=== PATIENT | female | born 1940 | race Caucasian/White ===

== ENCOUNTER → 2023-11-16 14:08 | Outpatient (REF) | payer MEDICARE, BC, SELFPAY | LOC: HWWDC 14:08 | PROVIDERS: ATTENDING PHYSICIAN Internal Medicine; REFERRING PHYSICIAN Family Medicine | DX: Z12.31 Encounter for screening mammogram for malignant neoplasm of breast (principal) | CPT/HCPCS: 77063; 77067 ==

== ENCOUNTER → 2023-12-19 13:40 | Outpatient (REF) | payer MEDICARE, BC, SELFPAY ==
[2023-12-19 15:43] LABS: % Eosinophils 3.3 % (0-6); % Immature Granulocytes 0.3 % (0-0.5); % Lymphocytes 28.1 % (20.5-51.1); % Monocytes 7.8 % (1.7-9.3); % Neutrophils 59.5 % (42.2-75.2); Absolute Basophils 0.1 10^3/uL (0-0.2); Absolute Eosinophils 0.2 10^3/uL (0-0.7); Absolute Lymphocytes 1.9 10^3/uL (1.2-3.4); Absolute Monocytes 0.5 10^3/uL (0.1-0.6); Hemoglobin 13.6 g/dL (12.0-16.0); Mean Corp Hgb Conc. 33.2 g/dL (33.0-37.0); Mean Corpuscular Hgb 30.5 pg (27.0-31.0); Mean Corpuscular Volume 91.9 fL (81.0-99.0); Mean Platelet Volume 9.9 fL (7.4-10.4); Nucleated Red Blood Cells % 0 %; Platelet Count 285 10^3/uL (130-400); Red Blood Cell Count 4.46 10^6/uL (4.20-5.40); Red Cell Dist. Width 12.2 % (11.5-14.5); White Blood Cell Count 6.7 10^3/uL (4.8-10.8)
[2023-12-19 15:56] LABS: Erythrocyte Sed Rate 6 mm/hour (0-20)
[2023-12-19 16:07] LABS: ALT (SGPT) 22 U/L (0-35); AST (SGOT) 35 U/L (14-36); Albumin 4.3 g/dl (3.5-5.0); Alkaline Phosphatase 82 U/L (38-126); Blood Urea Nitrogen 19 mg/dl (7-17); Calcium 9.2 mg/dl (8.4-10.2); Carbon Dioxide 27 mmol/L (22-30); Chloride 104 mmol/L (98-107); Glucose 84 mg/dl (70-99); HDL Cholesterol 87 mg/dl; LDL Cholesterol, Calculated 95 mg/dl; Magnesium 2.1 mg/dl (1.6-2.3); Sodium 136 mmol/L (135-145); Total Bilirubin 0.6 mg/dl (0.2-1.3); Total Cholesterol 203 mg/dl (50-199); Triglyceride 105 mg/dl (10-149); Very Low Density Lipoprotein 21 mg/dl (0-30); eGFR > 60.00
[2023-12-19 16:12] LABS: Potassium 4.4 mmol/L (3.5-5.1)
[2023-12-19 16:15] LABS: Complement C3 102 mg/dl (88-165)
[2023-12-19 16:28] LABS: Free T3 3.37 pg/ml (2.77-5.27); Free T4 0.78 ng/dl (0.78-2.19)
[2023-12-19 16:41] LABS: TSH 3.08 uIU/ml (0.47-4.68)
[2023-12-22 16:15] LABS: Total T3 (Sendout) 241 ng/dL (80-200)
[2023-12-22 17:10] LABS: DHEA Sulfate 71 ug/dL (12-154)
== END ==
LOC: HWLAB 13:40
PROVIDERS: ATTENDING PHYSICIAN Family Medicine; FAMILY PHYSICIAN Family Medicine
DX: E27.40 Unspecified adrenocortical insufficiency (principal); E72.11 Homocystinuria; I10 Essential (primary) hypertension; I25.10 Atherosclerotic heart disease of native coronary artery without angina pectoris; M05.79 Rheumatoid arthritis with rheumatoid factor of multiple sites without organ or systems involvement; M79.605 Pain in left leg; E03.8 Other specified hypothyroidism
CPT/HCPCS: 36415; 80053; 80061; 82533; 82627; 83090; 83735; 84439; 84443; 84480; 84481; 85025; 85652; 86140; 86160

== ENCOUNTER → 2024-04-03 12:54 | Outpatient (REF) | payer MEDICARE, BC, SELFPAY ==
[2024-04-03 15:22] LABS: % Eosinophils 3.7 % (0-6); % Immature Granulocytes 0.3 % (0-0.5); % Lymphocytes 26.6 % (20.5-51.1); % Monocytes 9.9 % (1.7-9.3); % Neutrophils 58.5 % (42.2-75.2); Absolute Basophils 0.1 10^3/uL (0-0.2); Absolute Eosinophils 0.2 10^3/uL (0-0.7); Absolute Lymphocytes 1.6 10^3/uL (1.2-3.4); Absolute Monocytes 0.6 10^3/uL (0.1-0.6); Absolute Neutrophils 3.5 10^3/uL (1.4-6.5); Hematocrit 38.9 % (37.0-47.0); Hemoglobin 13.1 g/dL (12.0-16.0); Mean Corp Hgb Conc. 33.7 g/dL (33.0-37.0); Mean Corpuscular Hgb 30.3 pg (27.0-31.0); Mean Corpuscular Volume 89.8 fL (81.0-99.0); Mean Platelet Volume 9.8 fL (7.4-10.4); Nucleated Red Blood Cells % 0 %; Platelet Count 250 10^3/uL (130-400); Red Blood Cell Count 4.33 10^6/uL (4.20-5.40); Red Cell Dist. Width 12.8 % (11.5-14.5)
[2024-04-03 15:29] LABS: ALT (SGPT) 20 U/L (0-35); AST (SGOT) 33 U/L (14-36); Albumin 4.2 g/dl (3.5-5.0); Alkaline Phosphatase 70 U/L (38-126); Blood Urea Nitrogen 19 mg/dl (7-17); Calcium 9.5 mg/dl (8.4-10.2); Carbon Dioxide 28 mmol/L (22-30); Chloride 104 mmol/L (98-107); Glucose 89 mg/dl (70-99); HDL Cholesterol 95 mg/dl; LDL Cholesterol, Calculated 90 mg/dl; Potassium 4.2 mmol/L (3.5-5.1); Sodium 138 mmol/L (135-145); Total Bilirubin 0.8 mg/dl (0.2-1.3); Total Cholesterol 201 mg/dl (50-199); Triglyceride 84 mg/dl (10-149); Very Low Density Lipoprotein 16 mg/dl (0-30); eGFR > 60.00
[2024-04-03 15:30] LABS: Erythrocyte Sed Rate 17 mm/hour (0-20)
== END ==
LOC: HWLAB 12:54
PROVIDERS: ATTENDING PHYSICIAN Internal Medicine Rheumatology; FAMILY PHYSICIAN Family Medicine; REFERRING PHYSICIAN Family Medicine
DX: E78.00 Pure hypercholesterolemia, unspecified (principal); Z13.1 Encounter for screening for diabetes mellitus; Z13.29 Encounter for screening for other suspected endocrine disorder; R53.83 Other fatigue; M05.79 Rheumatoid arthritis with rheumatoid factor of multiple sites without organ or systems involvement
CPT/HCPCS: 36415; 80053; 80061; 84443; 85025; 85652; 86140

== ENCOUNTER → 2024-05-20 09:56 | Outpatient (REF) | payer MEDICARE, BC, SELFPAY | LOC: WDC 09:56 | PROVIDERS: ATTENDING PHYSICIAN Family Medicine | DX: N64.4 Mastodynia (principal) | CPT/HCPCS: 76642; 77061; 77065 ==

== ENCOUNTER → 2024-08-27 13:34 | Outpatient (REF) | payer MEDICARE, BC, SELFPAY ==
[2024-08-27 16:54] LABS: % Basophils 0.9 % (0-2); % Eosinophils 3.4 % (0-6); % Immature Granulocytes 0.5 % (0-0.5); % Lymphocytes 25.4 % (20.5-51.1); % Neutrophils 62.8 % (42.2-75.2); Absolute Basophils 0.1 10^3/uL (0-0.2); Absolute Eosinophils 0.2 10^3/uL (0-0.7); Absolute Lymphocytes 1.7 10^3/uL (1.2-3.4); Absolute Monocytes 0.5 10^3/uL (0.1-0.6); Absolute Neutrophils 4.1 10^3/uL (1.4-6.5); Hematocrit 42.1 % (37.0-47.0); Mean Corp Hgb Conc. 33.3 g/dL (33.0-37.0); Mean Corpuscular Volume 93.1 fL (81.0-99.0); Mean Platelet Volume 9.7 fL (7.4-10.4); Nucleated Red Blood Cells % 0 %; Platelet Count 272 10^3/uL (130-400); Red Blood Cell Count 4.52 10^6/uL (4.20-5.40); Red Cell Dist. Width 12.9 % (11.5-14.5); White Blood Cell Count 6.5 10^3/uL (4.8-10.8)
[2024-08-27 17:02] LABS: ALT (SGPT) 29 U/L (0-35); AST (SGOT) 36 U/L (14-36); Albumin 4.5 g/dl (3.5-5.0); Alkaline Phosphatase 54 U/L (38-126); Blood Urea Nitrogen 14 mg/dl (7-17); Calcium 9.7 mg/dl (8.4-10.2); Carbon Dioxide 29 mmol/L (22-30); Chloride 103 mmol/L (98-107); Glucose 90 mg/dl (70-99); Potassium 4.5 mmol/L (3.5-5.1); Sodium 141 mmol/L (135-145); Total Bilirubin 0.6 mg/dl (0.2-1.3); Total Cholesterol 225 mg/dl (50-199); Total Protein 7.1 g/dl (6.3-8.2); Triglyceride 116 mg/dl (10-149); Very Low Density Lipoprotein 23 mg/dl (0-30); eGFR > 60.00
[2024-08-27 17:11] LABS: HDL Cholesterol 119 mg/dl; LDL Cholesterol, Calculated 83 mg/dl
[2024-08-27 17:31] LABS: TSH Reflex To Free T4 2.13 uIU/ml (0.47-4.68)
== END ==
LOC: HWLAB 13:34
PROVIDERS: ATTENDING PHYSICIAN Family Medicine; REFERRING PHYSICIAN Family Medicine
DX: E78.00 Pure hypercholesterolemia, unspecified (principal); Z13.1 Encounter for screening for diabetes mellitus; Z13.29 Encounter for screening for other suspected endocrine disorder; R53.83 Other fatigue
CPT/HCPCS: 36415; 80053; 80061; 84443; 85025

== ENCOUNTER → 2024-12-03 14:49 | Outpatient (REF) | payer MEDICARE, BC, SELFPAY | LOC: HWRAD 14:49 | PROVIDERS: ATTENDING PHYSICIAN Family Medicine | DX: M81.0 Age-related osteoporosis without current pathological fracture (principal); Z79.52 Long term (current) use of systemic steroids | CPT/HCPCS: 77080 ==

== ENCOUNTER → 2025-01-02 13:10 | Outpatient (REF) | payer MEDICARE, BC, SELFPAY ==
[2025-01-02 16:48] LABS: % Basophils 0.8 % (0-2); % Eosinophils 2.2 % (0-6); % Immature Granulocytes 0.2 % (0-0.5); % Lymphocytes 17.8 % (20.5-51.1); % Monocytes 8.5 % (1.7-9.3); % Neutrophils 70.5 % (42.2-75.2); Absolute Basophils 0.1 10^3/uL (0-0.2); Absolute Eosinophils 0.1 10^3/uL (0-0.7); Absolute Lymphocytes 1.1 10^3/uL (1.2-3.4); Absolute Monocytes 0.5 10^3/uL (0.1-0.6); Absolute Neutrophils 4.2 10^3/uL (1.4-6.5); Hematocrit 38.9 % (37.0-47.0); Hemoglobin 12.7 g/dL (12.0-16.0); Mean Corp Hgb Conc. 32.6 g/dL (33.0-37.0); Mean Corpuscular Hgb 31.1 pg (27.0-31.0); Mean Corpuscular Volume 95.3 fL (81.0-99.0); Mean Platelet Volume 10.2 fL (7.4-10.4); Nucleated Red Blood Cells % 0 %; Platelet Count 254 10^3/uL (130-400); Red Blood Cell Count 4.08 10^6/uL (4.20-5.40); Red Cell Dist. Width 13.1 % (11.5-14.5)
[2025-01-02 17:00] LABS: ALT (SGPT) 28 U/L (0-35); AST (SGOT) 32 U/L (14-36); Albumin 4.4 g/dl (3.5-5.0); Alkaline Phosphatase 55 U/L (38-126); Blood Urea Nitrogen 19 mg/dl (7-17); Calcium 9.4 mg/dl (8.4-10.2); Carbon Dioxide 27 mmol/L (22-30); Chloride 102 mmol/L (98-107); Glucose 90 mg/dl (70-99); Potassium 4.7 mmol/L (3.5-5.1); Sodium 135 mmol/L (135-145); Total Bilirubin 0.7 mg/dl (0.2-1.3); Total Protein 6.5 g/dl (6.3-8.2); eGFR > 60.00
[2025-01-02 17:01] LABS: C-Reactive Protein < 5.00 mg/L (0.0-10.00)
[2025-01-02 17:07] LABS: Erythrocyte Sed Rate 6 mm/hour (0-20)
== END ==
LOC: HWLAB 13:10
PROVIDERS: ATTENDING PHYSICIAN Internal Medicine Rheumatology; FAMILY PHYSICIAN Family Medicine
DX: M05.79 Rheumatoid arthritis with rheumatoid factor of multiple sites without organ or systems involvement (principal)
CPT/HCPCS: 36415; 80053; 85025; 85652; 86140

== ENCOUNTER → 2025-01-23 12:41 | Outpatient (REF) | payer MEDICARE, BC, SELFPAY | LOC: HWRAD 12:41 | PROVIDERS: ATTENDING PHYSICIAN Registered Nurse; FAMILY PHYSICIAN Family Medicine | DX: N94.89 Other specified conditions associated with female genital organs and menstrual cycle (principal) | CPT/HCPCS: 76830; 76856 ==

== ENCOUNTER → 2025-02-04 13:21 | Outpatient (REF) | payer MEDICARE, BC, SELFPAY | LOC: HWRAD 13:21 | PROVIDERS: ATTENDING PHYSICIAN Registered Nurse; REFERRING PHYSICIAN Family Medicine | DX: Z12.31 Encounter for screening mammogram for malignant neoplasm of breast (principal) | CPT/HCPCS: 77063; 77067 ==

== ENCOUNTER → 2025-02-12 13:06 | Outpatient (REF) | payer MEDICARE, BC, SELFPAY ==
[2025-02-12 15:56] LABS: % Basophils 1.3 % (0-2); % Eosinophils 2.1 % (0-6); % Immature Granulocytes 0.2 % (0-0.5); % Lymphocytes 22.7 % (20.5-51.1); % Neutrophils 61.7 % (42.2-75.2); Absolute Basophils 0.1 10^3/uL (0-0.2); Absolute Eosinophils 0.1 10^3/uL (0-0.7); Absolute Lymphocytes 1.2 10^3/uL (1.2-3.4); Absolute Monocytes 0.6 10^3/uL (0.1-0.6); Absolute Neutrophils 3.2 10^3/uL (1.4-6.5); Hematocrit 38.7 % (37.0-47.0); Hemoglobin 12.6 g/dL (12.0-16.0); Mean Corp Hgb Conc. 32.6 g/dL (33.0-37.0); Mean Corpuscular Hgb 31.3 pg (27.0-31.0); Mean Platelet Volume 9.7 fL (7.4-10.4); Nucleated Red Blood Cells % 0 %; Platelet Count 280 10^3/uL (130-400); Red Blood Cell Count 4.03 10^6/uL (4.20-5.40); Red Cell Dist. Width 12.6 % (11.5-14.5); White Blood Cell Count 5.2 10^3/uL (4.8-10.8)
[2025-02-12 16:04] LABS: ALT (SGPT) 23 U/L (0-35); AST (SGOT) 30 U/L (14-36); Albumin 4.5 g/dl (3.5-5.0); Alkaline Phosphatase 60 U/L (38-126); Blood Urea Nitrogen 19 mg/dl (7-17); Calcium 9.5 mg/dl (8.4-10.2); Carbon Dioxide 25 mmol/L (22-30); Chloride 104 mmol/L (98-107); Glucose 101 mg/dl (70-99); Potassium 4.7 mmol/L (3.5-5.1); Sodium 139 mmol/L (135-145); Total Bilirubin 0.7 mg/dl (0.2-1.3); Total Protein 6.9 g/dl (6.3-8.2); eGFR > 60.00
[2025-02-13 13:23] LABS: Lyme Antibody Screen, EIA Negative (Negative)
== END ==
LOC: HWLAB 13:06
PROVIDERS: ATTENDING PHYSICIAN Nurse Practitioner Adult Health
DX: M25.551 Pain in right hip (principal); S50.861D Insect bite (nonvenomous) of right forearm, subsequent encounter; W57.XXXD Bitten or stung by nonvenomous insect and other nonvenomous arthropods, subsequent encounter; T73.2XXA Exhaustion due to exposure, initial encounter
CPT/HCPCS: 36415; 80053; 85025; 86618

== ENCOUNTER → 2025-02-25 13:38 | Outpatient (REF) | payer MEDICARE, BC, SELFPAY ==
[2025-02-25 17:30] LABS: Erythrocyte Sed Rate 29 mm/hour (0-20)
[2025-02-27 08:36] LABS: Rheumatoid Agglutinin Less Than 10 IU (<10 IU)
[2025-02-27 12:12] LABS: Lyme Antibody Screen, EIA Negative (Negative)
== END ==
LOC: HWLAB 13:38
PROVIDERS: ATTENDING PHYSICIAN Family Medicine
DX: M05.732 Rheumatoid arthritis with rheumatoid factor of left wrist without organ or systems involvement (principal); M79.10 Myalgia, unspecified site; M25.50 Pain in unspecified joint
CPT/HCPCS: 36415; 85652; 86038; 86140; 86235; 86430; 86618; 86780

== ENCOUNTER → 2025-03-18 12:55 | Outpatient (REF) | payer MEDICARE, BC, SELFPAY ==
[2025-03-18 15:23] LABS: % Basophils 0.9 % (0-2); % Eosinophils 3.6 % (0-6); % Immature Granulocytes 0.3 % (0-0.5); % Lymphocytes 23.9 % (20.5-51.1); % Monocytes 9.3 % (1.7-9.3); Absolute Basophils 0.1 10^3/uL (0-0.2); Absolute Eosinophils 0.2 10^3/uL (0-0.7); Absolute Lymphocytes 1.4 10^3/uL (1.2-3.4); Absolute Monocytes 0.5 10^3/uL (0.1-0.6); Absolute Neutrophils 3.6 10^3/uL (1.4-6.5); Hematocrit 38.3 % (37.0-47.0); Hemoglobin 12.2 g/dL (12.0-16.0); Mean Corp Hgb Conc. 31.9 g/dL (33.0-37.0); Mean Corpuscular Hgb 30.7 pg (27.0-31.0); Mean Corpuscular Volume 96.5 fL (81.0-99.0); Nucleated Red Blood Cells % 0 %; Platelet Count 239 10^3/uL (130-400); Red Blood Cell Count 3.97 10^6/uL (4.20-5.40); Red Cell Dist. Width 12.4 % (11.5-14.5); White Blood Cell Count 5.8 10^3/uL (4.8-10.8)
[2025-03-18 15:31] LABS: ALT (SGPT) 23 U/L (0-35); AST (SGOT) 28 U/L (14-36); Albumin 4.2 g/dl (3.5-5.0); Alkaline Phosphatase 56 U/L (38-126); Blood Urea Nitrogen 22 mg/dl (7-17); Calcium 9.3 mg/dl (8.4-10.2); Carbon Dioxide 27 mmol/L (22-30); Chloride 107 mmol/L (98-107); Glucose 79 mg/dl (70-99); Potassium 4.6 mmol/L (3.5-5.1); Sodium 140 mmol/L (135-145); Total Bilirubin 0.7 mg/dl (0.2-1.3); Total Protein 6.5 g/dl (6.3-8.2); eGFR > 60.00
[2025-03-18 15:44] LABS: Erythrocyte Sed Rate 15 mm/hour (0-20)
[2025-03-18 16:07] LABS: Hepatitis B Core Ab, IgM Negative (Negative)
[2025-03-18 16:19] LABS: Hepatitis B Surface Antibody Negative
== END ==
LOC: RAD 12:55
PROVIDERS: ATTENDING PHYSICIAN Internal Medicine Rheumatology; FAMILY PHYSICIAN Family Medicine; OTHER PHYSICIAN Nurse Practitioner Adult Health; REFERRING PHYSICIAN Family Medicine
DX: M05.79 Rheumatoid arthritis with rheumatoid factor of multiple sites without organ or systems involvement (principal); M53.3 Sacrococcygeal disorders, not elsewhere classified
CPT/HCPCS: 36415; 72220; 80053; 85025; 85652; 86140; 86705; 86706

== ENCOUNTER → 2025-04-28 08:47 | Outpatient (REF) | payer MEDICARE, BC, SELFPAY | LOC: HWLAB 08:47 | PROVIDERS: ATTENDING PHYSICIAN Internal Medicine Rheumatology; FAMILY PHYSICIAN Family Medicine; REFERRING PHYSICIAN Family Medicine | DX: M05.79 Rheumatoid arthritis with rheumatoid factor of multiple sites without organ or systems involvement (principal) | CPT/HCPCS: 36415; 86480 ==

== ENCOUNTER 2025-06-04 23:53 | Emergency (ER) | payer MEDICARE, BC, SELFPAY ==
[2025-06-04 23:59] VITALS: BP 143/79
--- NOTE | 2025-06-05 00:06 | ED.GENMED ---
Addendum entered and electronically signed by Milka Fletcher MD 06/05/25 12:45:
Case d/w pt at 1243, made her aware of fx, asked her to return for splint placement and will need to f/u ortho. She is going to see her chiropractor ater today and will come to ED around 5pm for splint placement. Will make staff aware. SHe has
seen Dr Huerta in past and plans to call him now for f/u.
Addendum entered and electronically signed by Milka Fletcher MD 06/05/25 07:51:
750AM Notified by Dr Timmons that pt has a nondisplaced radial head fx. Call placed to pt, no answer. Will continue to attempt to reach pt throughout day today.
Original Note:
History of Present Illness
General
Chief Complaint: Fall
Source: patient
Exam Limitations: none
Time Seen by Provider: 06/05/25 00:04
Nursing documentation reviewed up to this point in time: agreed with
History of Present Illness
History of Present Illness:
This is a 84-year-old female with a past medical history of coronary artery disease, hypertension, interstitial cystitis, bladder cancer, rheumatoid arthritis, presents emergency department today with concerns of elbow and wrist pain following a
trip and fall. Patient reports that she was helping up a neighbor with things in the garden and walked outside appointment was dark out with only risk intern and did not he a small fence surrounding the bushes. She walked forward and tripped over the
small fence, landing on her left side, and hitting her head as well as her left upper extremity. She did not lose consciousness. After the fall, she was able to get up on her own without any difficulty and walk without any pain with weightbearing.
She denies any left lower lower knee pain, left ankle pain. She notes pain in her left elbow and left wrist. She did have prior wrist surgery and a left wrist with Dr. England for prior fracture. She also notes a headache on the left side but
denies any dizziness, lightheadedness, visual changes, states that she is some soreness in her neck but denies any upper extremity paresthesias, denies any trouble ranging her neck. She denies any other injuries. She denies any chest pain or
shortness of breath. She denies any abdominal pain. Patient is unsure of her tetanus status however refuses tetanus being updated because she states that she had a severe allergic reaction in the past.
Past History
Past History
ED Past Medical History: Cancer (bladder tumor removed), Fibromyalgia, PR (two), Hypothyroidism and Other (2 PR -- osteporosis -- chronic fatique -- chemical sensatives -- urinary cystitis--- Hashimotos thyroid---interstitial cystitis )
ED Past Surgical History: Gynecological and Other (bladder tumor removed)
Social History
Tobacco: Non-smoker
Alcohol: Daily (wine)
Personal:
Living: alone
Employment: Disabled (fx back then , last [place] 1994.)
Family History
Family History: Other (Noncontributory)
Review of Systems
Review of Systems
All Other Systems: ROS reviewed and negative except as documented in HPI and ROS
Phy Exam
Physical Exam
Physical Exam:
General: Patient is well appearing and in no acute distress; non-toxic
Skin: Warm and dry, small abrasion noted over the left knee
Head: Normocephalic, atraumatic
Eyes: Sclera non-icteric. EOMs intact.
Cardiac: Regular rate and rhythm, no tenderness palpation of the external chest wall
Peripheral Vascular: No lower extremity swelling or edema, 2+ dorsalis pedis pulses in the left, 2+ popliteal pulses
Pulm: Normal respiratory effort
Musculoskeletal: Full range of motion on the left upper extremities full rom of left wrist and left elbow, no deformity noted
Neuro: CN II-XII intact, no focal neurologic deficits.
Psychiatric: Appropriate mood and affect.
Course
Orders/Labs/Results
Orders:
Orders
06/05/25 00:19
CT Cervical Spine W/o Iv Contr Urgent
Comment:
Reason For Exam: neck pain
CT Head W/o Iv Contrast Urgent
Comment:
Reason For Exam: left sided headache, head trauma
CR Elbow - Left Min 2 View Urgent
Comment:
Reason For Exam: left elbow pain
CR Wrist - Left Min 3 Views Urgent
Comment:
Reason For Exam: left wrist pain
Vital Signs
Initial and Last Documented VS:
Initial Vital Signs
Temp Pulse Resp BP Pulse Ox
98.1 F 78 18 143/79 98
06/04/25 23:59 06/04/25 23:59 06/04/25 23:59 06/04/25 23:59 06/04/25 23:59
Last Documented Vital Signs
Temp Pulse Resp BP Pulse Ox
98.1 F 78 16 162/86 96
06/04/25 23:59 06/05/25 01:40 06/05/25 01:40 06/05/25 01:40 06/05/25 01:40
MDM/Problems Addressed
Differential Diagnosis Includes:
Differentials include wrist fracture, elbow fracture, wrist contusion, concussion, tension headache, hematoma
MDM/Problems Addressed:
This is a 84-year-old female with a past medical history of coronary artery disease, hypertension, interstitial cystitis, bladder cancer, rheumatoid arthritis, presents emergency department today with concerns of elbow and wrist pain following a
trip and fall. During the fall, she also reports hitting her head. She not lose consciousness. On physical exam she is well-appearing no acute distress. There is mild swelling noted to the left lower extremity however no acute fracture or
dislocation noted on x-ray. She is neurovascularly intact. She is a nonfocal neuroexam. She went for CT scan of the head which showed no acute intracranial normality. Her CT of the cervical spine showed no abnormalities. Discussed use of Bear
wrap and ice for swelling and pain management. She will use Tylenol as needed at home. Patient stable for discharge. All patient questions answered. Discussed follow-up Dr. England.
Chronic conditions affecting care:
Coronary artery disease, asthma, UTIs, bladder cancer
*Pulse Oximetry
SaO2: 98
Oxygen Mode of Delivery: Room air
Patient hypoxic: no
*Critical Care Note
Total Time (30-74mins, 75-104mins- exclusive of procedures): Not Applicable
Data Reviewed
Review of Other/Old Records Reveals: Records (Reviewed ER physician documentation from 10/11/2023 patient seen for avulsion fracture of the tibial tuberosity, reviewed discharge summary from 06/18/2023 patient seen for shortness of breath and was
found to have new T wave inversions initial impression was that this was acute coronary syndrome abreu)
Source: patient and records
ED Attending Note
-
Portions of this chart may have been created with voice recognition software.� Occasional wrong word or��sound alike� substitutions may have occurred due to the inherent limitations of voice recognition software.
Discharge Plan
Departure
Patient Disposition: Home (Routine Discharge)
Date of Disposition: 06/05/25
Time of Disposition: 01:35
Patient with high blood pressure during this ER visit?: Yes
Condition: Good
Discharge Problem:
Fall, Contusion of left wrist
Instructions: Preventing falls in adults, Skin Abrasions (DC), BLOOD PRESSURE
Prescriptions:
No Action
aspirin 81 MG tablet,chewable
81 mg PO DAILY
Folic Acid
1,600 mcg PO DAILY
methotrexate sodium 2.5 MG tablet
12.5 mg PO FR
Potassium-99 99 MG tablet
99 mg PO DAILY
calcium carbonate 500 MG tablet
500 mg PO DAILY
magnesium oxide 200 MG tablet,chewable
400 mg PO DAILY
Grape Seed Extract
250 mg PO DAILY
Rx Instructions:
Grapefruit seed extract, for bladder
Rauwollfi
530 mcg PO DAILY
estradiol 1 APPLIC cream
1 applic vaginal .TWICE A WEEK
thyroid (pork) [B[employer] TECHNICIAN Thyroid] 60 mg Tablet
60 mg PO DAILY
metoprolol succinate 25 mg Tablet Extended Release 24 Hr
12.5 mg PO DAILY Qty: 15 1RF
lisinopril 2.5 mg Tablet
2.5 mg PO DAILY Qty: 30 1RF
furosemide 40 mg tablet
40 mg PO DAILY PRN (Reason: weight gain (1-3 lbs in 24 hrs, 3-5 lbs in 1 week)) Qty: 30 1RF
Rx Instructions:
prn weight gain (1-3 lbs in 24 hrs, 3-5 lbs in 1 week)
Farxiga 10 mg Tablet
10 mg PO DAILY Qty: 30 1RF
Referrals:
Mickey Abarca DO [Family Provider, Family Practice]
Activity Restrictions/Additional Instructions:
Please follow up with your primary care provider. Please follow up with Dr. England.
Your CT showed no acute abnormalities. Your x-ray showed no fracture. You can use the Bear wrap and ice with swelling as needed. You can take Tylenol as needed for pain. PLEASE RETURN TO THE ER SHOULD YOU DEVELOP INCREASING PAIN, INABILITY TO
MOVE YOUR UPPER EXTREMITIES, LOSS OF CONSCIOUSNESS, FAINTING SPELLS, CHEST PAIN, SHORTNESS OF BREATH, INABILITY TO AMBULATE, OR ANY OTHER SIGNS OR SYMPTOMS WORRISOME TO YOU.
Interventions
Interventions:
*Risk Screen - Suicide Last Done: 06/04/25 23:59
*General Assessment Last Done: 06/05/25 00:10
*Neglect/Abuse Screening Last Done: 06/04/25 23:59
*ED- Fall Risk Assessment Last Done: 06/05/25 00:10
*ED COVID-19 Vaccine History Last Done: 06/05/25 00:10
*Nursing Disposition Last Done: 06/05/25 01:40
ED-Musculoskeletal Assessment Last Done: 06/05/25 00:10
ED- Neurological Assessment Last Done: 06/05/25 00:10
ED-Skin Assessment Last Done: 06/05/25 00:10
Discharge Date and Time
Discharge Date/Time: 06/05/25 01:40
Print Language: AMHARIC
[2025-06-05 01:40] VITALS: BP 162/86
== END 2025-06-05 01:40 | disposition home or self-care (01) ==
LOC: EMR 23:53
PROVIDERS: EMERGENCY PHYSICIAN Student in an Organized Health Care Education/Training Program; FAMILY PHYSICIAN Family Medicine
DX: S60.212A Contusion of left wrist, initial encounter (principal); W01.0XXA Fall on same level from slipping, tripping and stumbling without subsequent striking against object, initial encounter; Y93.01 Activity, walking, marching and hiking; I25.10 Atherosclerotic heart disease of native coronary artery without angina pectoris; I10 Essential (primary) hypertension; M06.9 Rheumatoid arthritis, unspecified; M79.7 Fibromyalgia; I25.2 Old myocardial infarction; N30.10 Interstitial cystitis (chronic) without hematuria; E03.9 Hypothyroidism, unspecified; J45.909 Unspecified asthma, uncomplicated; Z85.51 Personal history of malignant neoplasm of bladder
CPT/HCPCS: 99284; 70450; 72125; 73070; 73110

== ENCOUNTER → 2025-07-08 13:24 | Outpatient (REF) | payer MEDICARE, BC, SELFPAY ==
[2025-07-08 17:32] LABS: Hematocrit 39.1 % (37.0-47.0); Hemoglobin 12.6 g/dL (12.0-16.0); Mean Corp Hgb Conc. 32.2 g/dL (33.0-37.0); Mean Corpuscular Volume 91.8 fL (81.0-99.0); Nucleated Red Blood Cells % 0 %; Platelet Count 225 10^3/uL (130-400); Red Cell Dist. Width 15.0 % (11.5-14.5)
[2025-07-08 18:11] LABS: C-Reactive Protein < 5.00 mg/L (0.0-10.00)
[2025-07-08 18:42] LABS: Cortisol, Random 9.4 ug/dl
[2025-07-11 02:57] LABS: EBV-EA (D) Ab IgG 45.5 U/mL (<=8.9); EBV-NA IgG 583.0 U/mL (<=17.9); EBV-VCA IgG Antibodies >750.0 U/mL (<=17.9); EBV-VCA IgM Antibodies <10.0 U/mL (<=35.9)
[2025-07-11 06:08] LABS: Gliadin Peptide (DGP) Ab, IgA <0.72 FLU (0.00-4.99); Gliadin Peptide (DGP) Ab, IgG 1.10 FLU (0.00-4.99)
== END ==
LOC: HWLAB 13:24
PROVIDERS: ATTENDING PHYSICIAN Family Medicine
DX: B27.90 Infectious mononucleosis, unspecified without complication (principal); E27.40 Unspecified adrenocortical insufficiency; K90.41 Non-celiac gluten sensitivity; M05.79 Rheumatoid arthritis with rheumatoid factor of multiple sites without organ or systems involvement
CPT/HCPCS: 36415; 82533; 82627; 85025; 85652; 86140; 86258; 86663; 86664; 86665

== ENCOUNTER → 2025-07-14 12:48 | Outpatient (REF) | payer MEDICARE, BC, SELFPAY | LOC: HWRAD 12:48 | PROVIDERS: ATTENDING PHYSICIAN Internal Medicine Cardiovascular Disease; FAMILY PHYSICIAN Family Medicine; REFERRING PHYSICIAN Family Medicine | DX: R60.0 Localized edema (principal); R09.89 Other specified symptoms and signs involving the circulatory and respiratory systems | CPT/HCPCS: 93880; 93970 ==

== ENCOUNTER 2025-07-27 17:09 | Emergency (ER) | payer MEDICARE, BC, SELFPAY ==
[2025-07-27 17:13] VITALS: BP 199/100
--- NOTE | 2025-07-27 21:47 | ED.MUSCINJ ---
HPI-Injury
General
Chief Complaint: Musculo-Skeletal Complaint
Source: patient
Exam Limitations: none
Time Seen by Provider: 07/27/25 19:03
Nursing documentation reviewed up to this point in time: agreed with
History of Present Illness-Injury
Is this injury a work related problem?: No
Is pt an associate of [facility]?: No
Initial Injury comments:
Patient states she threw a piece of wood and it bounced back, landing on left 2nd toe. Incident occurred yesterday. Complains of pain to left 2nd toe Brought self to ED for eval.
Past History
Past History
ED Past Medical History: Cancer (bladder tumor removed), Fibromyalgia, SD (two), Hypothyroidism and Other (2 SD -- osteporosis -- chronic fatique -- chemical sensatives -- urinary cystitis--- Hashimotos thyroid---interstitial cystitis )
ED Past Surgical History: Gynecological and Other (bladder tumor removed)
Social History
Tobacco: Non-smoker
Alcohol: Daily (wine)
Personal:
Living: alone
Employment: Disabled (fx back then [place], last [place] 1994.)
Family History
Family History: Other (Noncontributory)
Review of Systems
Review of Systems
Allergies reviewed?: Yes
All Other Systems: ROS reviewed and negative except as documented in HPI and ROS
Constitutional: Reports no symptoms
EENT: Reports no symptoms
Respiratory: Reports no symptoms
Cardiac: Reports no symptoms
ABD/GI: Reports no symptoms
Musculoskeletal: Reports joint pain (Pain to left 2nd toe)
Skin: Reports no symptoms
Neurological: Reports no symptoms
Psychiatric: Reports no symptoms
Musculoskeletal Injury Exam
Musculoskeletal Injury Exam
Left Second Toe:
Pain with Movement?: Moderate
Tender to palpation?: Moderate
Soft tissue swelling?: None
External deformity and angulation?: None
Joint effusion?: None
Contusion?: Moderate
Hematoma-local bleeding into tissue?: None
Strain- Sprain- Tear (Connective tissue injury)?: None
Crepitus with movement?: No
Joint instability?: No
Malalignment/deformity?: No
Range of motion: Limited
Distal skin color and temperature: normal-warm & good color
Capillary Refill: normal
Normal distal neurovascular exam?: Yes
Peripheral Pulses: posterior tibial (left): 3+ and dorsalis pedis (left): 3+
Phy Exam
General Physical Exam
General Presentation: well appearing and no apparent distress
General age: appears stated age
General Skin: warm and dry
General Habitus: normal
General Mental: alert
Musculoskeletal Exam
Musculoskeletal Exam: full ROM and neuro vasc intact
Skin Exam
Skin Exam: normal color, warm/dry and no rash
Psychiatric Exam
Psychiatric Exam: normal mood/affect
Injury Course
Orders/Labs/Results
Orders:
Orders
07/27/25 17:15
Toes 2 Views, Left CR [CR Toe(s) Min 2 Vw Left] Urgent
Comment:
Reason For Exam: dropped wood on toe
Indicate Which Toe:: Second
*Radiology
Radiology exam reviewed: radiology read reviewed
*Pulse Oximetry
SaO2: 99
Oxygen Mode of Delivery: Room air
Patient hypoxic: no
*Critical Care Note
Total Time (30-74mins, 75-104mins- exclusive of procedures): Not Applicable
Update Note
Update Note:
Patient to ED with complaint of pain to left 2nd toe after a piece of wood fell onto it. No redness swelling or bruising noted. No fracture noted on xray. SHe will continue to ice prn, tylenol prn, follow up with PCP. Given instructions on s/s
to return to ED and she is agreeable to plan.
ED Attending Note
-
Portions of this chart may have been created with voice recognition software.� Occasional wrong word or��sound alike� substitutions may have occurred due to the inherent limitations of voice recognition software.
Discharge Plan
Departure
Patient Disposition: Home (Routine Discharge)
Date of Disposition: 07/27/25
Time of Disposition: 19:25
Patient with high blood pressure during this ER visit?: No
Condition: Good
Covid-19: Not Applicable
Discharge Problem:
Contusion of toe
Instructions: Contusion (DC), Ibuprofen, Using Cold for Pain
Prescriptions:
No Action
aspirin 81 MG tablet,chewable
81 mg PO DAILY
Folic Acid
1,600 mcg PO DAILY
methotrexate sodium 2.5 MG tablet
12.5 mg PO FR
Potassium-99 99 MG tablet
99 mg PO DAILY
calcium carbonate 500 MG tablet
500 mg PO DAILY
magnesium oxide 200 MG tablet,chewable
400 mg PO DAILY
Grape Seed Extract
250 mg PO DAILY
Rx Instructions:
Grapefruit seed extract, for bladder
Rauwollfi
530 mcg PO DAILY
estradiol 1 APPLIC cream
1 applic vaginal .TWICE A WEEK
thyroid (pork) [SUPERVISOR DRYING Thyroid] 60 mg Tablet
60 mg PO DAILY
metoprolol succinate 25 mg Tablet Extended Release 24 Hr
12.5 mg PO DAILY Qty: 15 1RF
lisinopril 2.5 mg Tablet
2.5 mg PO DAILY Qty: 30 1RF
furosemide 40 mg tablet
40 mg PO DAILY PRN (Reason: weight gain (1-3 lbs in 24 hrs, 3-5 lbs in 1 week)) Qty: 30 1RF
Rx Instructions:
prn weight gain (1-3 lbs in 24 hrs, 3-5 lbs in 1 week)
Farxiga 10 mg Tablet
10 mg PO DAILY Qty: 30 1RF
Referrals:
Ricardo Pa Jr., DO [Family Provider, Internal Medicine] - Follow up in 2-3 days
Interventions
Interventions:
*Risk Screen - Suicide Last Done: 07/27/25 17:15
*General Assessment Last Done: 07/27/25 17:15
*Neglect/Abuse Screening Last Done: 07/27/25 17:15
*ED COVID-19 Vaccine History Last Done: 07/27/25 17:15
*ED Influenza Vaccine History Last Done: 07/27/25 17:15
*Nursing Disposition Last Done: 07/27/25 19:49
ED-Musculoskeletal Assessment Last Done: 07/27/25 18:59
Discharge Date and Time
Discharge Date/Time: 07/27/25 19:50
Print Language: DANISH
== END 2025-07-27 19:50 | disposition home or self-care (01) ==
LOC: EMR 17:09
PROVIDERS: EMERGENCY PHYSICIAN Emergency Medicine; FAMILY PHYSICIAN Family Medicine; OTHER PHYSICIAN Family Medicine
DX: S90.122A Contusion of left lesser toe(s) without damage to nail, initial encounter (principal); W22.8XXA Striking against or struck by other objects, initial encounter; E03.9 Hypothyroidism, unspecified; I25.2 Old myocardial infarction; M79.7 Fibromyalgia; Z85.51 Personal history of malignant neoplasm of bladder; Z85.850 Personal history of malignant neoplasm of thyroid
CPT/HCPCS: 99283; 73660

== ENCOUNTER → 2025-08-20 13:05 | Outpatient (REF) | payer MEDICARE, BC, SELFPAY ==
[2025-08-20 16:28] LABS: Hematocrit 40.6 % (37.0-47.0); Hemoglobin 12.8 g/dL (12.0-16.0); Mean Corp Hgb Conc. 31.5 g/dL (33.0-37.0); Mean Corpuscular Volume 95.8 fL (81.0-99.0); Nucleated Red Blood Cells % 0 %; Platelet Count 230 10^3/uL (130-400); Red Cell Dist. Width 15.4 % (11.5-14.5)
[2025-08-20 17:11] LABS: ALT (SGPT) 30 U/L (0-35); AST (SGOT) 35 U/L (14-36); Albumin 4.4 g/dl (3.5-5.0); Alkaline Phosphatase 52 U/L (38-126); Blood Urea Nitrogen 26 mg/dl (7-17); C-Reactive Protein < 5.00 mg/L (0.0-10.00); Calcium 9.5 mg/dl (8.4-10.2); Carbon Dioxide 29 mmol/L (22-30); Chloride 103 mmol/L (98-107); Glucose 88 mg/dl (70-99); HDL Cholesterol 109 mg/dl; LDL Cholesterol, Calculated 84 mg/dl; Potassium 4.5 mmol/L (3.5-5.1); Sodium 136 mmol/L (135-145); Total Protein 6.9 g/dl (6.3-8.2); Very Low Density Lipoprotein 17 mg/dl (0-30); eGFR > 60.00
[2025-08-20 17:29] LABS: Vitamin D, 25-OH*** 50.8 ng/mL (30-80)
== END ==
LOC: HWLAB 13:05
PROVIDERS: ATTENDING PHYSICIAN Internal Medicine Rheumatology; FAMILY PHYSICIAN Family Medicine; REFERRING PHYSICIAN Family Medicine
DX: M81.0 Age-related osteoporosis without current pathological fracture (principal); M06.09 Rheumatoid arthritis without rheumatoid factor, multiple sites; Z79.899 Other long term (current) drug therapy; E78.00 Pure hypercholesterolemia, unspecified; M05.732 Rheumatoid arthritis with rheumatoid factor of left wrist without organ or systems involvement; R53.83 Other fatigue
CPT/HCPCS: 36415; 80053; 80061; 82306; 84443; 85025; 85652; 86140